=== PATIENT | male | born 1945 | race Caucasian/White ===

== ENCOUNTER 2023-05-18 12:55 | Outpatient (AMB) | payer MEDICARE, SELFPAY ==
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
[2023-05-18 13:30] VITALS: BP 122/74; PULSE 88; O2SAT 95; BMI 31.8
== END 2023-05-18 15:00 | disposition home or self-care (01) ==
PROVIDERS: Visit Provider Nurse Practitioner Family
DX: G20 Parkinson's disease (principal); R44.3 Hallucinations, unspecified
CPT/HCPCS: 99204

== ENCOUNTER → 2023-05-18 12:55 | Outpatient (BNVA) | payer MEDICARE, SELFPAY | PROVIDERS: Visit Provider Nurse Practitioner Family | DX: G20 Parkinson's disease (principal); R44.3 Hallucinations, unspecified | CPT/HCPCS: 99202 ==